=== PATIENT | female | born 2000 | race Caucasian/White ===

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

== ENCOUNTER 2021-06-29 18:26 | Emergency (ER) | payer OTHER ==
[2021-06-29] MEDS ORDERED: Amoxicillin/Potassium Clav 875 MG TAB ONE (19:35)
== END 2021-06-29 20:00 | disposition home or self-care (01) ==
LOC: MADERS 18:26
DX: S61.432A Puncture wound without foreign body of left hand, initial encounter (principal); W55.01XA Bitten by cat, initial encounter; Z79.899 Other long term (current) drug therapy
CPT/HCPCS: 99283